=== PATIENT | male | born 1955 | race Caucasian/White ===

== ENCOUNTER 2017-12-21 16:33 | Emergency (ER) | payer OTHER, SELFPAY ==
[2017-12-21 16:34] VITALS: BP 157/89; PULSE 72; RESP 18; TEMP 36.6; O2SAT 100; BMI 24.4
--- NOTE | 2017-12-21 16:44 | CT_ITS ---
STUDY: CT ABDOMEN AND PELVIS WITHOUT CONTRAST REASON FOR EXAM: Male, 62 years old. Kidney stone, left-sided flank pain RADIATION DOSAGE (If Supplied By Facility): CTDIvol = ( 8.16 ) mGy, DLP = ( 429.95 ) mGycm TECHNIQUE: Transaxial images were obtained from the dome of the diaphragm to the symphysis pubis without oral contrast, and without intravenous contrast. Sagittal and coronal images were reconstructed. Individualized dose optimization techniques were used for this CT. COMPARISON: None. FINDINGS: There is a 7 mm nodule of the medial right lower lobe image 13 series 2. Coronary arterial calcifications are present. There is no pericardial effusion. Normal liver. Normal gallbladder and extrahepatic biliary system. Normal spleen. Normal pancreas. Normal bilateral adrenal glands. Normal right kidney. There are several nonobstructing left renal calculi measuring up to 3 mm. There is a mild left hydronephrosis. There is an obstructing 4 mm calculus in the mid left ureter. There is mild left perinephric stranding. Normal visualized stomach. Normal small intestine. Normal colon. The appendix is visualized and appears normal. There are calcified plaques of the abdominal aorta. Normal inferior vena cava. Normal retroperitoneum. Normal urinary bladder. The prostate is enlarged and contains several calcifications. There is a moderate-sized fat-containing left inguinal hernia. There are diffuse degenerative changes of the visualized thoracolumbar spine. CT/Abdomen/Pelvis without Cont IMPRESSION: 1. Obstructing 4 mm calculus in the mid left ureter with mild proximal left hydronephrosis and hydroureter. 2. There are several additional nonobstructing left renal calculi measuring up to 3 mm. 3. 7 mm nodule of the medial right lower lobe. Appropriate follow-up using Fleischner Society criteria is recommended. 4. Enlarged prostate. 5. Moderate-sized fat-containing left inguinal hernia. Electronically Signed: Liban Carrillo MD at 17:45 EST , Service support ,
--- NOTE | 2017-12-21 16:46 | ED.DCSUM_ITS ---
- ER Visit Summary Date of Service: 12/21/17 Chief Complaint: Left flank pain History of Present Illness: The patient is a 62 M who presents to the emergency department with atraumatic left-sided flank pain. The patient's of his symptoms for 8 days. He states initially when it started, he had a sharp stabbing pain in his left flank. It lasted about 7 hours and then resolved. Over the past week it comes in waves. It was more frequent last night. He does describe some nausea without vomiting. He denies any change in bowel habits. He does admit to some urinary frequency but denies hematuria or urgency. He states he has never had symptoms like this before. He has had no prior abdominal surgery. He does have history of diabetes, hypertension, and hyperlipidemia. Physical Examination: Vital signs reviewed General: Well-nourished, well-developed Head: Normocephalic, atraumatic Eyes: Pupils equal and reactive, extraocular muscles intact Neck, supple, no lymphadenopathy Heart: Regular rate and rhythm Respiratory: No distress, clear bilaterally Abdomen: Soft, nontender, nondistended, no peritoneal signs Back: Nontender Extremities: Nontender, no edema, no cords Skin: Normal color no rash Neuro: Alert and oriented, no focal or lateralizing deficits Test Results: [] Emergency Department Course and Treatment: The patient declined any analgesics. His labs are relatively unremarkable. He does have some mild renal insufficiency. Urine shows no evidence of infection. Patient underwent CT. There is evidence of a 4 mm mid ureteral obstructing stone with mild hydro-. Patient also has a small lung nodule. Again, he has been resting comfortably and has not wanted any analgesics while here. I did children's counselor him on the lung nodule and that he will need follow-up. I do feel that this patient is safe for outpatient therapy for his kidney stone. He will be given a short course of analgesics, Flomax, and antiemetics. He will be given urology follow-up. The patient is comfortable with this plan of care and will be discharged home. Treatment Plan: [] Disposition: Discharge Impression: 1. A 4 mm left sided obstructing kidney stone This note was generated with [employer] software. It may contain incorrect words, spelling, and punctuation that were not noted in review of the chart prior to signing ED Disposition - Plan for ED Patient: Chief Complaint: Flank Pain Instructions: ED Stone Renal W Colic Prescriptions: Hydrocodone Bitart/Apap 5-325 [[place] 5/325] 1 tab PO Q4H PRN PRN 3 Days #12 tab PRN Reason: Pain Ondansetron [Zofran Odt] 4 mg PO Q8H PRN PRN #10 tab PRN Reason: Nausea Tamsulosin HCl [Flomax] 0.4 mg PO DAILY 14 Days #14 cap Referrals: Alden Smith MD [STAFF PHYSICIAN] -
[2017-12-21] MEDS: 0.9% Normal Saline 1,000 ML 250 ML IV (16:56)
[2017-12-21 17:23] LABS: Bacteria 0 SEEN /hpf (None Seen)
[2017-12-21 17:24] LABS: Color, Urine Yellow (Yellow); Glucose, Dipstick 50 mg/dl (Normal); Ketone-Dipstick Negative (Negative); Leukocyte Esterase-Dipstick 25 /ul (Negative); Nitrite-Dipstick Negative (Negative); Occult Blood-Urine 250 /ul (Negative); Protein-Dipstick 30 mg/dl (Negative); Specific Gravity, Urine 1.015 (1.002-1.030); Urine Bilirubin Dipstick Negative (Negative); Urine Clarity Clear (Clear); Urine Urobilinogen Normal (Normal)
[2017-12-21 17:26] LABS: Absolute Lymphocyte Count 0.98 X10^3/ul (0.83-4.51); Absolute Neutrophil Count 7.6 X10^3/uL (2.0-7.7); Basophil# 0.01 X10^3/uL; Basophil% 0.1 % (0-1); Hematocrit 40.3 % (40-54); Hemoglobin 12.6 g/dl (13.0-16.5); Lymphocyte # 0.98 X10^3/ul (4.0); Lymphocyte % 9.7 % (19-41); Mean Corp Hgb Conc 31.3 g/gl (32-36); Mean Corpuscular Hgb 24.3 pg (27.0-32.0); Mean Corpuscular Volume 77.8 fL (80-94); Mean Platelet Vol. 9.9 fl (6.2-12.0); Monocyte# 1.45 X10^3/uL; Monocyte% 14.3 % (0-10); Neutrophil # 7.56 X10^3/uL (2.7-7.7); Neutrophil % 74.8 % (47-70); POSITIVE COUNT NO; POSITIVE DIFFERENTIAL NO; POSITIVE MORPHOLOGY NO; Platelet Count 272 K/mm3 (150-450); RBC Distribution Width CV 15.5 % (11.6-14.6); RBC Distribution Width SD 43.3 fl (35.1-43.9); Red Blood Count 5.18 M/mm3 (4.6-6.2); White Blood Count 10.1 K/mm3 (4.4-11.0)
[2017-12-21 17:31] LABS: Mucous, Urine 1+ /hpf (<or=2+); Red Blood Cells-Urine 5-10 SEEN /hpf (0-5); Squamous Epithelial Cells - UA 0-5 SEEN /hpf (0-5); White Blood Cells 0-5 SEEN /hpf (0-5)
[2017-12-21 17:39] LABS: Anion Gap 7 (5-15); BUN 26 mg/dL (7-18); BUN/Creat Ratio 17.9 RATIO (10-20); Calcium,Total 8.8 mg/dL (8.5-10.1); Chloride 104 mmol/L (98-107); Creatinine, Serum 1.45 mg/dL (0.70-1.30); EST Glomerular Filtration Rate 52 mL/min (>60); Est Glom Filt Rate - Afr Amer 63 mL/min (>60); Estimated Creatinine Clearance 56.49 ml/min; Glucose 93 mg/dL (74-106); Potassium 3.9 mmol/L (3.5-5.1); Sodium Level 139 mmol/L (136-145)
[2017-12-21 18:07] VITALS: BP 146/88; PULSE 69; RESP 16; O2SAT 100
== END 2017-12-21 18:08 | disposition home or self-care (01) ==
LOC: ED 16:58
PROVIDERS: Emergency Provider Emergency Medicine; Family Provider Family Medicine; PCP Family Medicine
DX: N13.2 Hydronephrosis with renal and ureteral calculous obstruction (principal); E78.5 Hyperlipidemia, unspecified; I10 Essential (primary) hypertension; E11.9 Type 2 diabetes mellitus without complications; R91.1 Solitary pulmonary nodule; Z79.84 Long term (current) use of oral hypoglycemic drugs; Z79.899 Other long term (current) drug therapy
CPT/HCPCS: 74176; 80048; 81001; 85025; 96360; 99283; J7030

== ENCOUNTER → 2018-01-10 07:21 | Outpatient (CLI) | payer OTHER, SELFPAY ==
--- NOTE | 2018-01-10 07:25 | RAD_ITS ---
STUDY: X-RAY - ABDOMEN/PELVIS REASON FOR EXAM: Male, 62 years old. History of left-sided kidney stones. TECHNIQUE: Two AP supine views of the abdomen and pelvis. COMPARISON: Comparison is made with prior CT scan abdomen and pelvis dated December 21, 2017. FINDINGS: There is a moderate amount of colonic fecal material. The visualized liver, spleen and kidneys are grossly normal in size and morphology. There are calcified phleboliths in the pelvis. There are diffuse degenerative changes of the visualized lumbar spine. RAD/Abdomen Single View IMPRESSION: No acute abnormality is seen. Electronically Signed: Shawn Pizano MD at 8:22 EDT Tel [phone], Service support ,
== END ==
PROVIDERS: Family Provider Family Medicine; PCP Family Medicine; Visit Provider Urology
DX: N20.0 Calculus of kidney (principal)
CPT/HCPCS: 74018

== ENCOUNTER → 2018-04-06 16:00 | Outpatient (CLI) | payer OTHER, SELFPAY ==
--- OUTSIDE RECORDS SUMMARY | 2018-05-13 12:11 | XMS RPT_ITS ---
:1955 Author Organization OHIP Care Team Providers Name Role Phone Melita Mcconnell Attending Unavailable Mcconnell, Melita Primary Care Unavailable Mcconnell, Melita Primary Care Unavailable Lance Scott Attending Unavailable SarahAlden Attending Unavailable Alden Smith Referring Unavailable Melita Mcconnell Primary Care Unavailable Igor Fields Attending Unavailable Melita Mcconnell Referring Unavailable Melita Mcconnell Primary Care Unavailable PROBLEMS PROBLEMS DATE TYPE CONDITION / CODE ATTENDING STATUS SOURCE 04/06/2018 Unknown J02.9 - Acute Igor Fields Active [facility] pharyngitis, Community unspecified / Hospital J02.9(ICD-10) Repository 01/10/2018 Unknown N20.0 - CalcAlden Drew Active [place] [facility] / [facility] N20.0(ICD-10) Hospital Repository 12/21/2017 Unknown N20.9 - Urinary Lance Scott Active [place] calculus, Community unspecified / Hospital N20.9(ICD-10) Repository PROCEDURES PROCEDURES No Procedure Records FoundRESULTS RESULTS OFFICE VISIT REPORT Observed: 04/06/2018 Status: F Source: [place] 2:53 PM [facility] [place] [address] [place] [place] [address]IVBZLE VISITDate of Service: 04/06/18#: [id number] Acct: [id number]: MELITA GEORGES Rep #: [id number]: 1955 Provider: CHERIE Jones/Sex: 62/M [place] [facility] [place]: SignedIntakeVital Signs04/06/18 Height 6 ft 1.5 inIntakeVisit Reasons: SORE THROATAllergiesNo Known Allergies Allergy (Verified 04/06/18 09:47)MedicationsAtorvastatin Calcium [Lipitor] 10 mg PO QHS 12/21/17 [History Confirmed 04/06/18]Glimepiride [Amaryl] 4 mg PO DAILY 12/21/17 [History Confirmed 04/06/18]Lisinopril 20 mg PO DAILY 12/21/17 [History Confirmed 04/06/18] Metformin HCl [Glucophage] 500 mg PO BIDCM 12/21/17 [History Confirmed 04/06/18]aspirin 81 mg tablet,delayed release 81 mg PO QDAY 04/06/18 [History Confirmed 04/06/18]omega -3 fatty acids 1,000 mg capsule 1,000 mg PO QDAY 04/06/18 [History Confirmed 04/06/18]PFSHMedical HistoryDiabetes (Acute)Hypertension (Chronic)Surgical HistoryHx of hernia repair (Acute)Social HistorySmoking Status: Never smokerHPIHPIDetails: MELITA GEORGES, is a 62 M who presents to the office today for evaluation of a sorethroat. Patient states that he started with a scratchy throat on and the painsprogressed yesterday evening. Patient states that he has a large amount of drainage/postnasaldrip. He states that he has minor cough as well as some seasonal allergies this time of year.At the beginning of the week he was outdoors at a confucianism retreat more than he is used to.ROSConstConstitutional: Positive for chills;no fever(s) or night sweatsENTENT: Positive for sore throat and nasal discharge; no ear pain, ear pressure or sinus painRespRespiratory: Positive for cough Cough: Yes non-productiveExamConstGeneral: cooperative, healthy appearing, comfortable, no acute distress, well developed, wellgroomedNutritional Appearance: average body habitusOrientation: alert, awakeHENMTEars: external ears normal, TM's normal bilaterally, EAC's normalNose: external nose normal, nasal discharge clear bilaterallyFace and sinus: sinuses nontender, normal facial examMouth: oral mucosae normal, breath no malodorousThroat: postnasal drainageOther: Patient has a lot of evident stringy, thick, off white/yellowish discharge noted in theposterior oropharynx. He has some minor erythema of the posterior oropharynx as well. Noexudates or other acute findings in the palatoglossal arch or soft palate.NeckLymphatic: no lymphadenopathy notedRespEffort AND Inspection: normal respiratory effort, able to speak in complete sentences, symmetricchest movement, no cough (No cough in office), no audible wheezes, not laboredAuscultation: Bilateral: Clear to AuscultationResultsBMSRAPIDSTREPAOffice Rapid Strep A Negative Last Edit by Saranya Nunn on 04/06/18 09:52Assessment AND PlanProblems1. Throat pain R07.02. Acute upper respiratory infection J06.9PlanAt this time patient sore throat appears to be due to the evident discharge in the posteriororopharynx. His strep was negative and office. At this time we will go ahead and continuewith conservative measures that include anti-inflammatories, saline irrigation and fluids, andpossibly intranasal corticosteroids such as Flonase. Discussed signs or symptoms to watch forsuch as sinus pains or pressures chest congestion with tightness wheezing or shortness ofbreath. Patient to return to the office if symptoms develop. All questions were answered atthis time.This note was generated with ViFlux dictation software. It may contain incorrect words,spelling, and punctuation that were not noted in checking the note before signing.OrdersOrders:MedicationsDiscontinued:hydrocodone-acetaminophen 5-325 mg 1 tab PO Q4H PRN 3 days PRN Pain N20.9 Saranyalizbeth DevlinkDiscontinued Reason: Pt no longertakingondansetron Discontinued Reason: 4 mg PO Q8H PRN PRN Nausea Saranya BunyakPt no longer takingCodingLevel of Care CodeOff vis,new,level 3DiagnosesThroat pain R07.0Acute upper respiratory infection J06.906/ 1453 <Electronically signed by gIor CRESPO>Date Igor Fields PACosigner Signature: Date (if applicable)CC: Observed: 04/06/2018 Status: F Source: [place] CULTURE, R/O STREP A 9:45 AM [facility] JO CultureNo Group A Beta Streptococcus isolated. * This cultures intended use is to screen for Beta Streptococcus A only. All other pathogens and potential pathogens will not be screened for or reported. If a complete workup of all potential pathogens is indicated an order for a routine throat culture is required. Performed By: #### M100.010 ####[facility] [address] [place], [address] ABDOMEN SINGLE VIEW Observed: 01/10/2018 Status: F Source: [place] 7:25 AM [facility] [address] [place], [place] [address]Kvbvozt Single ViewMR#: [id number] Acct: [id number]: MELITA GEORGES Rep #: [id number]: 1955 M 62 From: Shawn Pizano MDPCP: Melita Mcconnell MD Status: REG CLIStudy: Abdomen Single View Date of Exam: 01/10/18Exam# [id number] Ordering Dr: Alden Smith MDSTUDY: X-RAY - ABDOMEN/PELVISREASON FOR EXAM: Male, 62 years old. History of left- sided kidneystones.TECHNIQUE: Two AP supine views of the abdomen and pelvis.COMPARISON: Comparison is made with prior CT scan abdomen and pelvisdated December 21, 2017. FINDINGS:There is a moderate amount of colonic fecal material.The visualized liver, spleen and kidneys are grossly normal in size andmorphology.There are calcified phleboliths in the pelvis. There are diffusedegenerative changes of the visualized lumbar spine. ORDER #: [id number] RAD/Abdomen Single ViewIMPRESSION:No acute abnormality is seen.Electronically Signed:Shawn Pizano MD at 8:22 EDTTel [phone], Service support , SL: Melita Mcconnell MD; Alden Smith MD Finance Intern:Signed EMERGENCY DEPARTMENT Observed: 12/21/2017 Status: F Source: [place] SUMMARY 6:54 PM [facility] [address] [facility] [place] [address]Faiuafvag Department Vrqyeok86/02/18 1645MR#: [id number] Acct: [id number]: MELITA GEORGES Rep #: [id number]: 1955 62 From: Lance Scott MDPCP: Melita Mcconnell MD Status: DEP ER- ER Visit SummaryDate of Service: 12/21/17Chief Complaint: Left flank painHistory of Present Illness: The patient is a 62 M who presents to the emergency department withatraumatic left-sided flank pain. The patient's of his symptoms for 8 days. He statesinitially when it started, he had a sharp stabbing pain in his left flank. It lasted about 7hours and then resolved. Over the past week it comes in waves. It was more frequent lastnight. He does describe some nausea without vomiting. He denies any change in bowel habits.He does admit to some urinary frequency but denies hematuria or urgency. He states he hasnever had symptoms like this before. He has had no prior abdominal surgery. He does havehistory of diabetes, hypertension, and hyperlipidemia.Physical Examination: Vital signs reviewedGeneral: Well-nourished, well-developedHead: Normocephalic, atraumaticEyes: Pupils equal and reactive, extraocular muscles intactNeck, supple, no lymphadenopathyHeart: Regular rate and rhythmRespiratory: No distress, clear bilaterallyAbdomen: Soft, nontender, nondistended, no peritoneal signsBack: NontenderExtremities: Nontender, no edema, no cordsSkin: Normal color no rashNeuro: Alert and oriented, no focal or lateralizing deficitsTest Results: []Emergency Department Course and Treatment: The patient declined any analgesics. His labs arerelatively unremarkable. He does have some mild renal insufficiency. Urine shows no evidenceof infection. Patient underwent CT. There is evidence of a 4 mm mid ureteral obstructingstone with mild hydro-. Patient also has a small lung nodule. Again, he has been restingcomfortably and has not wanted any analgesics while here. I did pet adoption counselor him on the lung noduleand that he will need follow-up. I do feel that this patient is safe for outpatient therapyfor his kidney stone. He will be given a short course of analgesics, Flomax, and antiemetics.He will be given urology follow-up. The patient is comfortable with this plan of care and willbe discharged home.Treatment Plan: []Disposition: DischargeImpression: 1. A 4 mm left sided obstructing kidney stoneThis note was generated with ViFlux dictation software. It may contain incorrect words,spelling, and punctuation that were not noted in review of the chart prior to signingED Disposition- Plan for ED Patient:Chief Complaint: Flank PainInstructions: ED Stone Renal W ColicPrescriptions:Hydrocodone Bitart /Apap 5-325 [[place] 5/325] 1 tab PO Q4H PRN PRN 3 Days #12 tabPRN Reason: PainOndansetron [Zofran Odt] 4 mg PO Q8H PRN PRN #10 tabPRN Reason: NauseaTamsulosin HCl [ Flomax] 0.4 mg PO DAILY 14 Days #14 capReferrals:Alden Smith MD [STAFF PHYSICIAN] - What to do if you have ProblemsFor any increased pain, shortness of breath, bleeding , nausea or vomiting, chest pain, or anyunexpected problems, contact your Primary Care Provider. Call [facility] ([phone])or report to the closest Emergency Room.Call 911 if necessary.12/21/17 6772 <Electronically signed by Lance Scott MD>Date Lance Scott MDCosigner Signature (If Indicated): Date CC: Melita Mcconnell MD URINALYSIS, COMPLETE Collected: 12/21/2017 Status: F Source: [place] 5:00 PM [facility] Order Comment: Order Date: 12/21/17How was Urine Obtained? CLEAN CATCH TYPE CODE TESTS RESULT OUT OF RANGE REFERENCE UNITS LAB L400.3000 Normal Yellow COLOR Yellow LAB L400.3050 Normal Clear CLARITY Clear LAB L400.3200 High Normal mg/dl GLUCOSE, UR 50 LAB L400.3300 Normal Negative mg/dL BILIRUBIN Negative URINE LAB L400.3400 Normal Negative mg/dl KETONE UR Negative LAB L400.3465 Normal 1.002-1.030 SP.GR. 1.015 DIPSTX LAB L400.3550 Normal 5.0 - 8.0 pH UR 6.0 LAB L400.3600 High Negative mg/dl PROT DIPSTX 30 LAB L400.3700 Normal Normal mg/dl UROBILI Normal LAB L400.3750 Normal Negative NITRITE UR Negative LAB L400.3780 High Negative /ul OCCULT 250 BLOOD-UR LAB L400.3800 High Negative /ul LEUK 25 ESTERASE LAB L400.4050 Normal 0-5 /hpf WBC 0-5 SEEN LAB L400.4100 Normal 0-5 /hpf RBC-UA 5-10 SEEN LAB L400.4150 Normal 0-5 /hpf SQUAM EPI 0-5 SEEN LAB L400.4300 Normal None Seen /hpf BACTERIA 0 SEEN LAB L400.4350 Normal <or=2+ /hpf MUCUS, 1+ URINE Performed By: #### L400.0001 ####[facility] [address] [place], [address] CBC W/DIFF, AUTOMATED Collected: 12/21/2017 Status: F Source: ABHIJIT 5:00 PM [facility] TYPE CODE TESTS RESULT OUT OF RANGE REFERENCE UNITS LAB L100.1000 Normal 4.4-11.0 K/mm3 WBC 10.1 LAB L100.1200 Normal 4.6-6.2 M/mm3 RBC 5.18 LAB L100.1300 Low 13.0-16.5 g/dl HGB 12.6 LAB L100.1400 Normal 40-54 % HCT 40.3 LAB L100.1500 Low 80-94 fL MCV 77.8 LAB L100.1600 Low 27.0-32.0 pg MCH 24.3 LAB L100.1700 Low 32-36 g/gl MCHC 31.3 LAB L100.1810 High 11.6-14.6 % RDW 15.5 CV LAB L100.1820 Normal 35.1-43.9 fl RDW 43.3 SD LAB L100.1900 Normal 150-450 K/mm3 PLT 272 LAB L100.2000 Normal 6.2-12.0 fl MPV 9.9 LAB L100.2100 High 47-70 % NEUT% 74.8 LAB L100.2200 Low 19-41 % LY% 9.7 LAB L100.2300 High 0-10 % MONO% 14.3 LAB L100.2400 Normal 0-5 % EO% 1.0 LAB L100.2500 Normal 0-1 % BASO% 0.1 LAB L100.2550 Normal 0.0-0.9 % IM 0.100 GRAN % Result Comment: IG% - Immature Granulocytes (promyelocytes, myelocytes andmetamyelocytes) > 1% indicates that a LEFT SHIFT is Present. LAB L100.2620 Normal 2.0-7.7 X10 3/uL Absolute Neut 7.6 LAB L100.2720 Normal 0.83-4.51 X10 3/ul Absolute Lymph 0.98 Performed By: #### L100.0100 ####[facility] [address] [place], [address] BASIC METABOLIC Collected: 12/21/2017 Status: F Source: ABHIJ[place] PROFILE (BMP) 5:00 [facility] TYPE CODE TESTS RESULT OUT OF RANGE REFERENCE UNITS LAB L501.0100 Normal 74-106 mg/dL GLU 93 Result Comment: Please note revised GLUCOSE reference range pmhuohump46/02/2018. LAB L501.1000 High 7-18 mg/dL BUN 26 LAB L501.1100 High 0.70-1.30 mg/dL CREAT,SERUM 1.45 Result Comment: The validity of the calculated GFR AND GFRAA in patients over70 years has not been determined. Clinical correlation isessential. LAB L501.1110 Low >60 mL/min EST GFR 52 Result Comment: Non- GFR Calc LAB L501.1115 Normal >60 mL/min EST GFR - 63 AA Result Comment: GFR Calc LAB L501.1255 Normal ml/min Estimated 56.49 CRCL LAB L501.1300 Normal 10-20 RATIO BUN/CRE 17.9 LAB L501.2200 Normal 8.5-10 mg/dL CA 8.8 .1 LAB L501.5300 Normal 136-14 mmol/L NA 139 5 LAB L501.5600 Normal 3.5-5. mmol/L K 3.9 1 LAB L501.5900 Normal 98-107 mmol/L CL 104 LAB L501.6100 Normal 21.0-3 mmol/L CO2 28.0 2.0 LAB L501.6200 Normal 5-15 GAP 7 Performed By: #### L500.2500 ####[facility] [address] [place], [address] ABDOMEN/PELVIS WITHOUT Observed: 12/21/2017 Status: F Source: [place] CONT 4:44 PM [facility] [address] [place], [place] [address]Mrowcmh/Pelvis without ContMR#: [id number] Acct: [id number]: EMLITA GEORGES Rep #: [id number]: [birth year] M 62 From: Liban Carrillo MDPCP: Melita Mcconnell MD Status: REG ERStudy: Abdomen/Pelvis without Cont Date of Exam: 12/21/17Exam# [id number] Ordering Dr: Lance Scott MDSTUDY: CT ABDOMEN AND PELVIS WITHOUT CONTRASTREASON FOR EXAM: Male , 62 years old. Kidney stone, left-sided flank painRADIATION DOSAGE (If Supplied By Facility): CTDIvol = ( 8.16 ) mGy, DLP =( 429.95 ) mGycmTECHNIQUE: Transaxial images were obtained from the dome of the diaphragmto the symphysis pubis without oral contrast, and without intravenouscontrast. Sagittal and coronal images were reconstructed.Individualized dose optimization techniques were used for this CT.COMPARISON: None. FINDINGS:There is a 7 mm nodule of the medial right lower lobe image 13 series 2.Coronary arterial calcifications are present. There is no pericardialeffusion.Normal liver. Normal gallbladder and extrahepatic biliary system. Normalspleen. Normal pancreas.Normal bilateral adrenal glands.Normal right kidney. There are several nonobstructing left renal calculimeasuring up to 3 mm. There is a mild left hydronephrosis. There is anobstructing 4 mm calculus in the mid left ureter. There is mild leftperinephric stranding.Normal visualized stomach. Normal small intestine. Normal colon. Theappendix is visualized and appears normal.There are calcified plaques of the abdominal aorta. Normal inferior venacava. Normal retroperitoneum.Normal urinary bladder. The prostate is enlarged and contains severalcalcifications.There is a moderate-sized fat-containing left inguinal hernia. There arediffuse degenerative changes of the visualized thoracolumbar spine. ORDER #: [id number] CT/Abdomen/Pelvis without ContIMPRESSION:1. Obstructing 4 mm calculus in the mid left ureter with mild proximalleft hydronephrosis and hydroureter.2. There are several additional nonobstructing left renal calculimeasuring up to 3 mm.3. 7 mm nodule of the medial right lower lobe. Appropriate follow-upusing Fleischner Society criteria is recommended.4. Enlarged prostate.5. Moderate-sized fat-containing left inguinal hernia.Electronically Signed:Liban Carrillo MD at 17:45 ESTTel , Service support , PD: Melita Mcconnell MD; Lance Scott MD Finance Intern:Signed LIPID PROFILE Collected: 10/12/2017 Status: F Source: [place] 8:05 [facility] REPOSITORY Order Comment: Order Date: 07/02/17Order Info: [id number] - LIPIDOrder Info: [id number] - GLU TYPE CODE TESTS RESULT OUT OF RANGE REFERENCE UNITS LAB L501.4900 Normal 200 mg/dL CHOL 139 Result Comment: <200 mg /dL Desirable 200-240 mg/dL Borderline >240 mg/dL High Risk LAB L501.5000 Normal mg/dL TRIG 162 Result Comment: The drugs N-Acetylcysteine and Metamizole may falselydepress this assay.Serum Triglycerides Reference Interval Normal <150 mg/dL Borderline high 150 - 199 mg/dL High 200 - 499 mg/dL Very High > or = 500 mg/dL LAB L501.6400 Low mg/dL HDL 39 Result Comment: The drugs N-Acetylcysteine and Metamizole may falselydepress this assay. Reference Range HDL <40 mg/dL Low HDL Cholesterol HDL >or= 60 mg/dL High HDL Cholesterol LAB L501.6500 Normal 0-130 mg/dL LDL 68 LAB L501.6600 Normal 5-40 mg/dL VLDL 32 Performed By: #### L500.4100, L501.0100, L501.9985 #### [facility] [address] [place], [address] GLUCOSE Collected: 10/12/2017 Status: F Source: [place] 8:05 [facility] REPOSITORY Order Comment: Order Date: 07/02/17Order Info: [id number] - LIPIDOrder Info: [id number] - GLU TYPE CODE TESTS RESULT OUT OF RANGE REFERENCE UNITS LAB L501.0100 High 70-110 mg/dL GLU 158 Result Comment: Fasting Glucose result greater than or equal to 126 mg/dLsuggests DIABETES MELLITUS per A.D.A. criteria. Performed By: #### L500.4100, L501.0100, L501.9985 #### [facility] [address] [place], [address] HEMOGLOBIN A1C Collected: 10/12/2017 Status: F Source: ABHIJIT 8:05 AM [facility] Order Comment: Order Date: 07/02/17Order Info: [id number] - A1C TYPE CODE TESTS RESULT OUT OF RANGE REFERENCE UNITS LAB L501.9985 High 4.2-6.3 % HGB 7.4 A1C Performed By: #### L500.4100, L501.0100, L501.9985 #### [facility] [address] [place], [address] ALLERGIES ALLERGIES DATE TYPE / CODE NAME / CODE REACTION SEVERITY SOURCE 04/06/2018 Drug No Known Unknown [facility] Allergy/4160 Allergies/F00 Hospital 87571(SNOMED [id number](RXNOR Repository CT) M) ENCOUNTERS ENCOUNTERS ADMIT/DISCHARGE ACCOUNT ADMITTING ENCOUNTER LOCATION SOURCE NUMBER CLASS 04/06/2018/ [id number] [facility] [place] [facility] 01/10/2018 [id number] Ambulatory [place] Abhijit 2 [facility] ing:RAD.FUTUR Repository E 12/21/2017/ [id number] Emergency Abhijit [place] 8 4 [facility] ing:ED Repository 10/12/2017 [id number] Ambulatory [facility] 8 [facility] ing:MFPLAB Repository PAYERS PAYERS ENCOUNTER GUARANTOR PAYER SUBSCRIBER SOURCE 04/06/2018 MELITA GEORGES[address] Insurance:AULTCAREPol SLATERDOB: [facility] RDAPPLE icy Number: [id number], [place] [id number] Repository [address]Yas: Date:9135-82-92E[phone]4 ) [address]WP: 04/06/2018 Secondary NOT GIVENUNK [place] Insurance:SELF PAY [facility] Number: Effective Repository Date:2018-04-06 01/10/2018 MELITA R Primary MELITA R [place] [id number] Insurance:AULTCAREPol SLATERDOB: [facility] [place] icy Number: [id number], [place] [id number] Repository [address]Uqo: Date:3160-57-34[phone] [place] [address] -4 (HP) [phone]: 01/10/2018 Secondary NOT GIVENUNK [place] Insurance:SELF PAY [facility] Number: Effective Repository Date:2018-01-09 12/21/2017 Melita R Primary Melita Lacey [id number] Insurance:AULTCAREPol SlaterDOB: [facility] [place] icy Number: [id number], [place] [id number] Repository [address]Dqh: Date:3516-60-56DD [phone] [address]4 (HP) [phone]: 12/21/2017 Secondary NOT GIVENUNK [place] Insurance:SELF PAY [facility] Number: Effective Repository Date:2017-12-21 10/12/2017 Melita R Primary Melita Lacey [id number] Insurance:AULTCAREPol SlaterDOB: [facility] [place] RD[place] icy Number: [id number], [place] [id number] Repository [address]Uio: (330) Date:9904-67-71QR [phone] () [address] [place] [phone]: 10/12/2017 Secondary NOT GIVENUNK [place] Insurance:SELF PAY [facility] Number: Effective Repository Date:2017-10-12
== END ==
PROVIDERS: Visit Provider Physician Assistant
DX: J02.9 Acute pharyngitis, unspecified (principal)
CPT/HCPCS: 87081

== ENCOUNTER → 2018-07-11 06:41 | Outpatient (CLI) | payer OTHER, SELFPAY ==
--- NOTE | 2018-07-11 06:43 | CT_ITS ---
STUDY: CT CHEST WITHOUT CONTRAST REASON FOR EXAM: Male, 62 years old. Right lung nodule seen on CT the abdomen and pelvis in December. Nonsmoker. RADIATION DOSAGE (If Supplied By Facility): CTDIvol = ( 13.04 ) mGy, DLP = ( 1010.48 ) mGycm TECHNIQUE: Transaxial imaging was performed without the administration of intravenous contrast material. Multiplanar coronal and sagittal images were reformatted. Individualized dose optimization techniques were used for this CT. COMPARISON: CT of the abdomen and pelvis, December 21, 2017 FINDINGS: The lungs are well expanded. There is a 3 mm nodule in the lateral aspect of the right lung base which was noted on the prior study. This is best seen on image 91 of series 7. The nodular density along the right heart border in the medial right lung base is again noted on image 93. This measures 4 mm diameter. No other nodules are seen. There is no infiltrate. There is no demonstrated pleural abnormality. Normal heart and pericardium. There are calcifications of the coronary arteries. There is nonspecific subcentimeter lymph nodes in the peritracheal space, subcarinal space and AP window. Normal hilar regions. Normal unenhanced pulmonary arteries. Normal aorta arch and descending thoracic aorta. There are multi-level degenerative changes of the thoracic spine. There is no demonstrated abnormality of the visualized upper abdomen. CT/Chest without Contrast IMPRESSION: There are 2 small nodules in the right lower lobe. No further workup is considered necessary by Fleischner. Society criteria. The study is otherwise unremarkable. Electronically Signed: Reagan Negrete DO at 23:05 EDT Tel [phone], Service support ,
== END ==
PROVIDERS: Family Provider Family Medicine; PCP Family Medicine; Visit Provider Family Medicine
DX: R91.1 Solitary pulmonary nodule (principal)
CPT/HCPCS: 71250

== ENCOUNTER → 2018-09-05 08:03 | Outpatient (CLI) | payer OTHER, SELFPAY ==
[2018-09-05 10:12] LABS: Hematocrit 39.9 % (40-54); Hemoglobin 12.3 g/dl (13.0-16.5); Mean Corp Hgb Conc 30.8 g/gl (32-36); Mean Corpuscular Hgb 24.2 pg (27.0-32.0); Mean Corpuscular Volume 78.5 fL (80-94); Mean Platelet Vol. 10.4 fl (6.2-12.0); Platelet Count 251 K/mm3 (150-450); RBC Distribution Width CV 15.8 % (11.6-14.6); Red Blood Count 5.08 M/mm3 (4.6-6.2); White Blood Count 5.6 K/mm3 (4.4-11.0)
[2018-09-05 10:15] LABS: Scan Indicated on CBC? Y/N NO
[2018-09-05 10:16] LABS: Anion Gap 9 (5-15); BUN 16 mg/dL (7-18); BUN/Creat Ratio 15.4 RATIO (10-20); Calcium,Total 8.6 mg/dL (8.5-10.1); Chloride 104 mmol/L (98-107); Cholesterol 136 mg/dL (200); Creatinine, Serum 1.04 mg/dL (0.70-1.30); EST Glomerular Filtration Rate 76 mL/min (>60); Est Glom Filt Rate - Afr Amer 92 mL/min (>60); Ferritin 8 ng/mL (26-388); Glucose 135 mg/dL (74-106); High Density Lipoprotein 40 mg/dL; PSA,Total - Annual Screen 2.15 ng/mL (0.00-4.00); Potassium 4.4 mmol/L (3.5-5.1); Sodium Level 139 mmol/L (136-145); Triglycerides 163 mg/dL; Very Low Density Lipoprotein 33 mg/dL (5-40)
[2018-09-05 10:18] LABS: Hemoglobin A1c 7.7 % (4.2-6.3)
== END ==
PROVIDERS: Family Provider Family Medicine; PCP Family Medicine; Visit Provider Family Medicine
DX: I10 Essential (primary) hypertension (principal); E11.9 Type 2 diabetes mellitus without complications; E78.5 Hyperlipidemia, unspecified; Z12.5 Encounter for screening for malignant neoplasm of prostate
CPT/HCPCS: 36415; 80048; 80061; 82728; 83036; 84153; 85027; G0103

== ENCOUNTER → 2019-03-12 16:00 | Outpatient (CLI) | payer OTHER, SELFPAY ==
[2018-04-06 09:44] VITALS: BMI 23.8
[2019-03-12 17:39] LABS: Absolute Lymphocyte Count 1.11 X10^3/ul (0.83-4.51); Absolute Neutrophil Count 4.5 X10^3/uL (2.0-7.7); Basophil# 0.02 X10^3/uL; Basophil% 0.3 % (0-1); Eosinophil# 0.14 X10^3/uL; Eosinophils% 2.2 % (0-5); Hematocrit 41.4 % (40-54); Hemoglobin 13.7 g/dl (13.0-16.5); Lymphocyte # 1.11 X10^3/ul (4.0); Lymphocyte % 17.5 % (19-41); Mean Corp Hgb Conc 33.1 g/gl (32-36); Mean Corpuscular Hgb 28.1 pg (27.0-32.0); Mean Platelet Vol. 9.9 fl (6.2-12.0); Monocyte# 0.62 X10^3/uL; Monocyte% 9.8 % (0-10); Neutrophil # 4.46 X10^3/uL (2.7-7.7); Neutrophil % 70.2 % (47-70); Platelet Count 244 K/mm3 (150-450); RBC Distribution Width CV 13.8 % (11.6-14.6); RBC Distribution Width SD 42.8 fl (35.1-43.9); Red Blood Count 4.87 M/mm3 (4.6-6.2); White Blood Count 6.4 K/mm3 (4.4-11.0)
[2019-03-12 17:44] LABS: POSITIVE COUNT NO; POSITIVE DIFFERENTIAL NO; POSITIVE MORPHOLOGY NO
[2019-03-12 18:09] LABS: Ferritin 23 ng/mL (26-388)
== END ==
PROVIDERS: Family Provider Family Medicine; PCP Family Medicine; Visit Provider Family Medicine
DX: D50.9 Iron deficiency anemia, unspecified (principal)
CPT/HCPCS: 36415; 82728; 85025

== ENCOUNTER → 2019-09-17 08:19 | Outpatient (CLI) | payer MEDICARE, OTHER, SELFPAY ==
[2019-09-17 10:33] LABS: Absolute Neutrophil Count 3.8 X10^3/uL (2.0-7.7); Basophil# 0.01 X10^3/uL; Basophil% 0.2 % (0-1); Eosinophil# 0.12 X10^3/uL; Eosinophils% 2.2 % (0-5); Hematocrit 39.7 % (40-54); Hemoglobin 12.4 g/dL (13.0-16.5); Lymphocyte % 18.5 % (19-41); Mean Corp Hgb Conc 31.2 g/dL (32-36); Mean Corpuscular Hgb 25.5 pg (27.0-32.0); Mean Corpuscular Volume 81.5 fL (80-94); Mean Platelet Vol. 10.1 fl (6.2-12.0); Monocyte% 9.3 % (0-10); NRBC Flagged by Analyzer 0 % (0-5); Neutrophil # 3.75 X10^3/uL (2.7-7.7); Neutrophil % 69.4 % (47-70); Platelet Count 287 K/mm3 (150-450); RBC Distribution Width CV 13.1 % (11.6-14.6); RBC Distribution Width SD 38.7 fl (35.1-43.9); Red Blood Count 4.87 M/mm3 (4.6-6.2); White Blood Count 5.4 K/mm3 (4.4-11.0)
[2019-09-17 10:47] LABS: Anion Gap 9 (5-15); BUN 25 mg/dL (7-18); BUN/Creat Ratio 23.4 RATIO (10-20); Calcium,Total 8.8 mg/dL (8.5-10.1); Chloride 106 mmol/L (98-107); Cholesterol 153 mg/dL (200); Creatinine, Serum 1.07 mg/dL (0.70-1.30); EST Glomerular Filtration Rate 74 mL/min (>60); Est Glom Filt Rate - Afr Amer 89 mL/min (>60); Ferritin 7 ng/mL (26-388); Glucose 162 mg/dL (74-106); High Density Lipoprotein 39 mg/dL; PSA,Total - Annual Screen 2.86 ng/mL (0.00-4.00); Potassium 4.2 mmol/L (3.5-5.1); Sodium Level 139 mmol/L (136-145); Triglycerides 185 mg/dL; Very Low Density Lipoprotein 37 mg/dL (5-40)
[2019-09-17 10:58] LABS: Hemoglobin A1c 8.2 % (4.2-6.3)
== END ==
PROVIDERS: Family Provider Family Medicine; PCP Family Medicine; Referring Provider Family Medicine; Visit Provider Family Medicine
DX: I10 Essential (primary) hypertension (principal); D50.9 Iron deficiency anemia, unspecified; E11.9 Type 2 diabetes mellitus without complications; Z12.5 Encounter for screening for malignant neoplasm of prostate
CPT/HCPCS: 36415; 80048; 80061; 82728; 83036; 84153; 85025; G0103

== ENCOUNTER → 2020-04-12 08:02 | Outpatient (CLI) | payer MEDICARE, OTHER, SELFPAY ==
[2020-04-12 09:47] LABS: Absolute Lymphocyte Count 0.89 X10^3/uL (0.83-4.51); Absolute Neutrophil Count 3.5 X10^3/uL (2.0-7.7); Basophil# 0.03 X10^3/uL; Basophil% 0.6 % (0-1); Eosinophil# 0.12 X10^3/uL; Eosinophils% 2.3 % (0-5); Hematocrit 36.1 % (40-54); Hemoglobin 11.2 g/dL (13.0-16.5); Lymphocyte # 0.89 X10^3/ul (4.0); Lymphocyte % 17.2 % (19-41); Mean Corpuscular Hgb 25.9 pg (27.0-32.0); Mean Corpuscular Volume 83.6 fL (80-94); Mean Platelet Vol. 10.3 fl (6.2-12.0); Monocyte# 0.56 X10^3/uL; Monocyte% 10.8 % (0-10); NRBC Flagged by Analyzer 0 % (0-5); Neutrophil # 3.53 X10^3/uL (2.7-7.7); Neutrophil % 68.3 % (47-70); Platelet Count 273 K/mm3 (150-450); RBC Distribution Width CV 13.2 % (11.6-14.6); RBC Distribution Width SD 40.1 fl (35.1-43.9); Red Blood Count 4.32 M/mm3 (4.6-6.2); White Blood Count 5.2 K/mm3 (4.4-11.0)
[2020-04-12 10:12] LABS: Ferritin 5 ng/mL (26-388)
[2020-04-12 10:21] LABS: Hemoglobin A1c 7.1 % (3.8-5.6)
== END ==
PROVIDERS: PCP Family Medicine; Visit Provider Family Medicine
DX: D50.9 Iron deficiency anemia, unspecified (principal); E11.65 Type 2 diabetes mellitus with hyperglycemia
CPT/HCPCS: 36415; 82728; 83036; 85025

== ENCOUNTER → 2020-08-06 08:01 | Outpatient (CLI) | payer MEDICARE, OTHER, SELFPAY ==
[2020-08-06 10:01] LABS: Absolute Lymphocyte Count 0.98 X10^3/uL (0.83-4.51); Absolute Neutrophil Count 3.8 X10^3/uL (2.0-7.7); Basophil# 0.02 X10^3/uL; Basophil% 0.4 % (0-1); Eosinophil# 0.22 X10^3/uL; Eosinophils% 3.9 % (0-5); Hematocrit 44.3 % (40-54); Hemoglobin 13.8 g/dL (13.0-16.5); Lymphocyte # 0.98 X10^3/ul (4.0); Lymphocyte % 17.6 % (19-41); Mean Corp Hgb Conc 31.2 g/dL (32-36); Mean Corpuscular Hgb 26.3 pg (27.0-32.0); Mean Corpuscular Volume 84.4 fL (80-94); Mean Platelet Vol. 9.9 fl (6.2-12.0); Monocyte# 0.56 X10^3/uL; Monocyte% 10.1 % (0-10); NRBC Flagged by Analyzer 0 % (0-5); Neutrophil # 3.76 X10^3/uL (2.7-7.7); Neutrophil % 67.5 % (47-70); Platelet Count 246 K/mm3 (150-450); RBC Distribution Width CV 15.2 % (11.6-14.6); RBC Distribution Width SD 46.1 fl (35.1-43.9); Red Blood Count 5.25 M/mm3 (4.6-6.2); White Blood Count 5.6 K/mm3 (4.4-11.0)
[2020-08-06 10:37] LABS: Anion Gap 4 (5-15); BUN 14 mg/dL (7-18); BUN/Creat Ratio 13.5 RATIO (10-20); Calcium,Total 8.7 mg/dL (8.5-10.1); Chloride 107 mmol/L (98-107); Creatinine, Serum 1.04 mg/dL (0.70-1.30); EST Glomerular Filtration Rate 76 mL/min (>60); Est Glom Filt Rate - Afr Amer 92 mL/min (>60); Ferritin 12 ng/mL (26-388); Glucose 180 mg/dL (74-106); Potassium 4.3 mmol/L (3.5-5.1); Sodium Level 139 mmol/L (136-145)
[2020-08-06 10:41] LABS: Microalbumin,Random Urine 12.6 mg/L (NO RANGE EST.); Microalbumin:Creatinine Ratio 8.5 mg/g CRE (<30 mg/g CRE)
[2020-08-06 10:49] LABS: Hemoglobin A1c 6.9 % (3.8-5.6)
== END ==
PROVIDERS: PCP Family Medicine; Referring Provider Family Medicine; Visit Provider Family Medicine
DX: E11.65 Type 2 diabetes mellitus with hyperglycemia (principal); D50.9 Iron deficiency anemia, unspecified
CPT/HCPCS: 36415; 80048; 82043; 82570; 82728; 83036; 85025

== ENCOUNTER → 2020-10-14 | Outpatient (CLI) | payer MEDICARE, OTHER, SELFPAY ==
[2018-04-06 09:44] VITALS: BMI 23.8
== END | disposition home or self-care (01) ==
LOC: LABSPEC 10:41
PROVIDERS: PCP Family Medicine; Visit Provider Family Medicine
DX: U07.1 COVID-19 (principal)
CPT/HCPCS: 87635; U0003

== ENCOUNTER → 2021-02-08 08:01 | Outpatient (CLI) | payer MEDICARE, OTHER, SELFPAY ==
[2021-02-08 10:17] LABS: Absolute Lymphocyte Count 1.28 X10^3/uL (0.83-4.51); Absolute Neutrophil Count 4.4 X10^3/uL (2.0-7.7); Basophil# 0.03 X10^3/uL; Basophil% 0.5 % (0-1); Eosinophil# 0.25 X10^3/uL; Eosinophils% 3.8 % (0-5); Hematocrit 47.1 % (40-54); Hemoglobin 14.6 g/dL (13.0-16.5); Lymphocyte # 1.28 X10^3/ul (0.83-4.51); Lymphocyte % 19.3 % (19-41); Mean Corpuscular Hgb 26.9 pg (27.0-32.0); Mean Corpuscular Volume 86.7 fL (80-94); Mean Platelet Vol. 10.3 fl (6.2-12.0); Monocyte# 0.61 X10^3/uL; Monocyte% 9.2 % (0-10); NRBC Flagged by Analyzer 0 % (0-5); Neutrophil # 4.42 X10^3/uL (2.7-7.7); Neutrophil % 66.7 % (47-70); Platelet Count 300 K/mm3 (150-450); RBC Distribution Width CV 13.2 % (11.6-14.6); RBC Distribution Width SD 41.6 fl (35.1-43.9); Red Blood Count 5.43 M/mm3 (4.6-6.2); White Blood Count 6.6 K/mm3 (4.4-11.0)
[2021-02-08 10:54] LABS: ALB/GLOB Ratio 1.1 RATIO (0.9-2.4); AST(SGOT) 27 U/L (15-37); Alanine Aminotransfer ALT/SGPT 52 U/L (16-61); Albumin, Serum 3.9 g/dL (3.2-5.0); Alkaline Phosphatase 91 U/L (45-117); Anion Gap 6 (5-15); BUN 18 mg/dL (7-18); BUN/Creat Ratio 16.5 RATIO (10-20); Calcium,Total 8.9 mg/dL (8.5-10.1); Chloride 102 mmol/L (98-107); Cholesterol 145 mg/dL (200); Creatinine, Serum 1.09 mg/dL (0.70-1.30); EST Glomerular Filtration Rate 72 mL/min (>60); Est Glom Filt Rate - Afr Amer 87 mL/min (>60); Ferritin 19 ng/mL (26-388); Globulin 3.6 g/dL (2.2-4.2); Glucose 165 mg/dL (74-106); High Density Lipoprotein 40 mg/dL; Potassium 4.1 mmol/L (3.5-5.1); Protein, Total 7.5 g/dL (6.4-8.2); Sodium Level 138 mmol/L (136-145); Triglycerides 229 mg/dL; Very Low Density Lipoprotein 46 mg/dL (5-40)
[2021-02-08 11:22] LABS: Hemoglobin A1c 7.3 % (3.8-5.6)
[2021-02-08 11:41] LABS: Microalbumin,Random Urine 17.1 mg/L (NO RANGE EST.); Microalbumin:Creatinine Ratio 12.7 mg/g CRE (<30 mg/g CRE)
== END ==
PROVIDERS: PCP Family Medicine; Visit Provider Family Medicine
DX: D50.9 Iron deficiency anemia, unspecified (principal); I10 Essential (primary) hypertension; E11.65 Type 2 diabetes mellitus with hyperglycemia
CPT/HCPCS: 36415; 80053; 80061; 82043; 82570; 82728; 83036; 85025

== ENCOUNTER → 2021-08-10 08:02 | Outpatient (CLI) | payer MEDICARE, OTHER, SELFPAY ==
[2021-08-10 10:16] LABS: Absolute Lymphocyte Count 0.98 X10^3/uL (0.83-4.51); Absolute Neutrophil Count 3.9 X10^3/uL (2.0-7.7); Basophil# 0.02 X10^3/uL; Basophil% 0.4 % (0-1); Eosinophil# 0.18 X10^3/uL; Eosinophils% 3.2 % (0-5); Hematocrit 40.7 % (40-54); Hemoglobin 12.9 g/dL (13.0-16.5); Lymphocyte # 0.98 X10^3/ul (0.83-4.51); Lymphocyte % 17.5 % (19-41); Mean Corp Hgb Conc 31.7 g/dL (32-36); Mean Corpuscular Hgb 27.9 pg (27.0-32.0); Mean Corpuscular Volume 88.1 fL (80-94); Mean Platelet Vol. 10.1 fl (6.2-12.0); Monocyte# 0.55 X10^3/uL; Monocyte% 9.8 % (0-10); NRBC Flagged by Analyzer 0 % (0-5); Neutrophil # 3.85 X10^3/uL (2.7-7.7); Neutrophil % 68.7 % (47-70); Platelet Count 277 K/mm3 (150-450); RBC Distribution Width CV 13.1 % (11.6-14.6); RBC Distribution Width SD 41.9 fl (35.1-43.9); Red Blood Count 4.62 M/mm3 (4.6-6.2); White Blood Count 5.6 K/mm3 (4.4-11.0)
[2021-08-10 10:34] LABS: AST(SGOT) 25 U/L (15-37); Alanine Aminotransfer ALT/SGPT 47 U/L (16-61); Albumin, Serum 3.6 g/dL (3.2-5.0); Alkaline Phosphatase 76 U/L (45-117); Anion Gap 6 (5-15); BUN 18 mg/dL (7-18); BUN/Creat Ratio 18.1 RATIO (10-20); Calcium,Total 8.5 mg/dL (8.5-10.1); Chloride 105 mmol/L (98-107); Cholesterol 138 mg/dL (200); EST Glomerular Filtration Rate 79 mL/min (>60); Est Glom Filt Rate - Afr Amer 96 mL/min (>60); Ferritin 11 ng/mL (26-388); Globulin 3.5 g/dL (2.2-4.2); Glucose 179 mg/dL (74-106); High Density Lipoprotein 43 mg/dL; Protein, Total 7.1 g/dL (6.4-8.2); Sodium Level 139 mmol/L (136-145); Triglycerides 197 mg/dL; Very Low Density Lipoprotein 39 mg/dL (5-40)
== END ==
PROVIDERS: PCP Registered Nurse; Referring Provider Registered Nurse; Visit Provider Registered Nurse
DX: E11.65 Type 2 diabetes mellitus with hyperglycemia (principal); E78.5 Hyperlipidemia, unspecified; D50.9 Iron deficiency anemia, unspecified; Z12.5 Encounter for screening for malignant neoplasm of prostate
CPT/HCPCS: 36415; 80053; 80061; 82728; 83036; 84153; 85025; G0103

== ENCOUNTER → 2021-10-11 | Outpatient (CLI) | payer MEDICARE, OTHER, SELFPAY | END | disposition home or self-care (01) | LOC: LABSPEC 11:09 | PROVIDERS: PCP Registered Nurse; Referring Provider Physician Assistant Surgical; Visit Provider Physician Assistant Surgical | DX: Z11.52 Encounter for screening for COVID-19 (principal) | CPT/HCPCS: 87635; U0005; U0003 ==

== ENCOUNTER 2021-11-11 15:08 | Outpatient (CLI) | payer MEDICARE, OTHER, SELFPAY ==
[2021-11-11 15:48] LABS: Bacteria 0 SEEN /hpf (None Seen); Mucous, Urine 0 SEEN /hpf (<or=2+); Red Blood Cells-Urine 0 SEEN /hpf (0-5)
[2021-11-11 16:24] LABS: Color, Urine Yellow (Yellow); Glucose, Dipstick 1000 mg/dl (Normal); Ketone-Dipstick 15 mg/dl (Negative); Leukocyte Esterase-Dipstick 500 /ul (Negative); Nitrite-Dipstick Negative (Negative); Occult Blood-Urine 10 /ul (Negative); Protein-Dipstick 30 mg/dl (Negative); Specific Gravity, Urine 1.015 (1.002-1.030); Urine Bilirubin Dipstick Negative (Negative); Urine Clarity Clear (Clear); Urine Urobilinogen Normal (Normal)
[2021-11-11 16:33] LABS: White Blood Cells 50-100 SEEN /hpf (0-5)
[2021-11-11 16:34] LABS: Squamous Epithelial Cells - UA 0-5 SEEN /hpf (0-5)
[2021-11-11 16:37] LABS: Yeast-Urine RARE /hpf (None Seen)
== END 2021-11-11 23:59 | disposition short-term general hospital (02) ==
LOC: LABSPEC 15:12
PROVIDERS: PCP Registered Nurse; Visit Provider Physician Assistant Surgical
DX: N39.0 Urinary tract infection, site not specified (principal)
CPT/HCPCS: 81001; 87086; 87088

== ENCOUNTER 2022-02-06 09:30 | Outpatient (CLI) | payer MEDICARE, OTHER, SELFPAY | END 2022-02-06 23:59 | disposition home or self-care (01) | LOC: MFPLAB 09:31 | PROVIDERS: PCP Registered Nurse; Visit Provider Family Medicine | DX: Z00.00 Encounter for general adult medical examination without abnormal findings (principal) ==

== ENCOUNTER → 2022-02-15 | Outpatient (CLI) | payer MEDICARE, OTHER, SELFPAY ==
[2022-02-15 10:05] LABS: Absolute Lymphocyte Count 0.88 X10^3/uL (0.83-4.51); Absolute Neutrophil Count 3.5 X10^3/uL (2.0-7.7); Basophil# 0.02 X10^3/uL; Basophil% 0.4 % (0-1); Eosinophil# 0.14 X10^3/uL; Eosinophils% 2.8 % (0-5); Hematocrit 37.7 % (40-54); Hemoglobin 12.4 g/dL (13.0-16.5); Lymphocyte # 0.88 X10^3/ul (0.83-4.51); Lymphocyte % 17.5 % (19-41); Mean Corp Hgb Conc 32.9 g/dL (32-36); Mean Corpuscular Hgb 26.7 pg (27.0-32.0); Mean Corpuscular Volume 81.3 fL (80-94); Mean Platelet Vol. 9.6 fl (6.2-12.0); Monocyte# 0.44 X10^3/uL; Monocyte% 8.8 % (0-10); NRBC Flagged by Analyzer 0 % (0-5); Neutrophil # 3.52 X10^3/uL (2.7-7.7); Neutrophil % 70.1 % (47-70); Platelet Count 269 K/mm3 (150-450); RBC Distribution Width CV 13.1 % (11.6-14.6); RBC Distribution Width SD 38.3 fl (35.1-43.9); Red Blood Count 4.64 M/mm3 (4.6-6.2)
[2022-02-15 10:30] LABS: Hemoglobin A1c 7.4 % (3.8-5.6)
[2022-02-15 10:36] LABS: Microalbumin,Random Urine 48.5 mg/L (NO RANGE EST.); Microalbumin:Creatinine Ratio 56.3 mg/g CRE (<30 mg/g CRE)
[2022-02-15 10:44] LABS: ALB/GLOB Ratio 1.1 RATIO (0.9-2.4); AST(SGOT) 25 U/L (15-37); Alanine Aminotransfer ALT/SGPT 43 U/L (16-61); Albumin, Serum 3.7 g/dL (3.2-5.0); Alkaline Phosphatase 81 U/L (45-117); Anion Gap 8 (5-15); BUN 16 mg/dL (7-18); BUN/Creat Ratio 17.4 RATIO (10-20); CPK Total, Creatine Kinase 328 U/L (39-308); Calcium,Total 8.4 mg/dL (8.5-10.1); Chloride 102 mmol/L (98-107); Cholesterol 136 mg/dL (200); Creatinine, Serum 0.92 mg/dL (0.70-1.30); EST Glomerular Filtration Rate 87 mL/min (>60); Est Glom Filt Rate - Afr Amer 105 mL/min (>60); Ferritin 6 ng/mL (26-388); Globulin 3.5 g/dL (2.2-4.2); Glucose 168 mg/dL (74-106); High Density Lipoprotein 37 mg/dL; Iron 165 ug/dL (65-175); Iron Binding Capacity,Total 433 ug/dL (250-450); Magnesium 1.7 mg/dL (1.6-2.6); PERCENT IRON SATURATION 38.1 % (15.0-55.0); Potassium 3.9 mmol/L (3.5-5.1); Protein, Total 7.2 g/dL (6.4-8.2); Sodium Level 136 mmol/L (136-145); Thyroid Stim Hormone (TSH) 1.53 uIU/mL (0.358-3.74); Triglycerides 166 mg/dL; Very Low Density Lipoprotein 33 mg/dL (5-40)
[2022-02-16 11:34] LABS: Vitamin B12 233 pg/mL (211-911)
== END | disposition home or self-care (01) ==
LOC: MFPLAB 09:28
PROVIDERS: PCP Family Medicine; Referring Provider Family Medicine; Visit Provider Family Medicine
DX: E11.65 Type 2 diabetes mellitus with hyperglycemia (principal); D50.9 Iron deficiency anemia, unspecified; R25.2 Cramp and spasm
CPT/HCPCS: 36415; 80053; 80061; 82043; 82550; 82570; 82607; 82728; 83036; 83540; 83550; 83735; 84443; 85025

== ENCOUNTER → 2022-03-22 | Outpatient (CLI) | payer MEDICARE, OTHER, SELFPAY ==
[2022-03-22 10:02] LABS: Absolute Neutrophil Count 3.2 X10^3/uL (2.0-7.7); Basophil# 0.02 X10^3/uL; Basophil% 0.4 % (0-1); Eosinophil# 0.12 X10^3/uL; Eosinophils% 2.6 % (0-5); Hematocrit 38.2 % (40-54); Hemoglobin 12.3 g/dL (13.0-16.5); Lymphocyte % 17.2 % (19-41); Mean Corp Hgb Conc 32.2 g/dL (32-36); Mean Corpuscular Hgb 26.2 pg (27.0-32.0); Mean Corpuscular Volume 81.4 fL (80-94); Mean Platelet Vol. 9.8 fl (6.2-12.0); Monocyte# 0.46 X10^3/uL; Monocyte% 9.9 % (0-10); NRBC Flagged by Analyzer 0 % (0-5); Neutrophil # 3.23 X10^3/uL (2.7-7.7); Neutrophil % 69.5 % (47-70); Platelet Count 245 K/mm3 (150-450); RBC Distribution Width CV 13.8 % (11.6-14.6); RBC Distribution Width SD 39.9 fl (35.1-43.9); Red Blood Count 4.69 M/mm3 (4.6-6.2); White Blood Count 4.7 K/mm3 (4.4-11.0)
[2022-03-22 10:29] LABS: Microalbumin,Random Urine 14.1 mg/L (NO RANGE EST.)
[2022-03-22 10:44] LABS: Vitamin B12 255 pg/mL (211-911)
[2022-03-22 11:05] LABS: ALB/GLOB Ratio 1.1 RATIO (0.9-2.4); AST(SGOT) 26 U/L (15-37); Alanine Aminotransfer ALT/SGPT 41 U/L (16-61); Albumin, Serum 3.6 g/dL (3.2-5.0); Alkaline Phosphatase 77 U/L (45-117); Anion Gap 9 (5-15); BUN 18 mg/dL (7-18); BUN/Creat Ratio 17.6 RATIO (10-20); CPK Total, Creatine Kinase 411 U/L (39-308); Calcium,Total 8.6 mg/dL (8.5-10.1); Chloride 104 mmol/L (98-107); Cholesterol 133 mg/dL (200); Creatinine, Serum 1.02 mg/dL (0.70-1.30); EST Glomerular Filtration Rate 77 mL/min (>60); Est Glom Filt Rate - Afr Amer 93 mL/min (>60); Ferritin 8 ng/mL (26-388); Globulin 3.4 g/dL (2.2-4.2); Glucose 258 mg/dL (74-106); High Density Lipoprotein 38 mg/dL; Iron 112 ug/dL (65-175); Iron Binding Capacity,Total 390 ug/dL (250-450); Magnesium 1.7 mg/dL (1.6-2.6); Sodium Level 137 mmol/L (136-145); Thyroid Stim Hormone (TSH) 1.16 uIU/mL (0.358-3.74); Triglycerides 214 mg/dL; Very Low Density Lipoprotein 43 mg/dL (5-40)
[2022-03-22 11:10] LABS: Hemoglobin A1c 7.4 % (3.8-5.6)
== END | disposition home or self-care (01) ==
PROVIDERS: PCP Family Medicine; Visit Provider Family Medicine
DX: E11.65 Type 2 diabetes mellitus with hyperglycemia (principal); D50.9 Iron deficiency anemia, unspecified; R25.2 Cramp and spasm
CPT/HCPCS: 36415; 80053; 80061; 82043; 82550; 82570; 82607; 82728; 83036; 83540; 83550; 83735; 84443; 85025

== ENCOUNTER → 2022-06-09 | Outpatient (CLI) | payer MEDICARE, OTHER, SELFPAY ==
[2022-06-09 10:04] LABS: Absolute Lymphocyte Count 0.97 X10^3/uL (0.83-4.51); Absolute Neutrophil Count 3.7 X10^3/uL (2.0-7.7); Basophil# 0.02 X10^3/uL; Basophil% 0.4 % (0-1); Eosinophil# 0.13 X10^3/uL; Eosinophils% 2.4 % (0-5); Hematocrit 42.3 % (40-54); Lymphocyte # 0.97 X10^3/ul (0.83-4.51); Lymphocyte % 18.2 % (19-41); Mean Corp Hgb Conc 33.1 g/dL (32-36); Mean Corpuscular Hgb 27.1 pg (27.0-32.0); Mean Platelet Vol. 9.9 fl (6.2-12.0); Monocyte# 0.48 X10^3/uL; NRBC Flagged by Analyzer 0 % (0-5); Neutrophil # 3.71 X10^3/uL (2.7-7.7); Neutrophil % 69.6 % (47-70); Platelet Count 253 K/mm3 (150-450); RBC Distribution Width CV 14.6 % (11.6-14.6); RBC Distribution Width SD 43.5 fl (35.1-43.9); Red Blood Count 5.16 M/mm3 (4.6-6.2); White Blood Count 5.3 K/mm3 (4.4-11.0)
[2022-06-09 10:25] LABS: Vitamin B12 458 pg/mL (211-911)
[2022-06-09 10:28] LABS: Hemoglobin A1c 7.6 % (3.8-5.6)
[2022-06-09 10:44] LABS: Microalbumin,Random Urine 19.1 mg/L (NO RANGE EST.); Microalbumin:Creatinine Ratio 14.5 mg/g CRE (<30 mg/g CRE)
[2022-06-09 11:25] LABS: ALB/GLOB Ratio 1.1 RATIO (0.9-2.4); AST(SGOT) 35 U/L (15-37); Alanine Aminotransfer ALT/SGPT 53 U/L (16-61); Albumin, Serum 3.5 g/dL (3.2-5.0); Alkaline Phosphatase 75 U/L (45-117); Anion Gap 8 (5-15); BUN 19 mg/dL (7-18); Calcium,Total 9.1 mg/dL (8.5-10.1); Chloride 106 mmol/L (98-107); Cholesterol 113 mg/dL (200); Creatinine, Serum 0.86 mg/dL (0.70-1.30); EST Glomerular Filtration Rate 93 mL/min (>60); Est Glom Filt Rate - Afr Amer 113 mL/min (>60); Ferritin 19 ng/mL (26-388); Globulin 3.3 g/dL (2.2-4.2); Glucose 182 mg/dL (74-106); High Density Lipoprotein 36 mg/dL; Iron 100 ug/dL (65-175); Iron Binding Capacity,Total 377 ug/dL (250-450); Potassium 4.1 mmol/L (3.5-5.1); Protein, Total 6.8 g/dL (6.4-8.2); Sodium Level 137 mmol/L (136-145); Triglycerides 159 mg/dL; Very Low Density Lipoprotein 32 mg/dL (5-40)
== END | disposition home or self-care (01) ==
LOC: MFPLAB 08:25
PROVIDERS: PCP Family Medicine; Referring Provider Family Medicine; Visit Provider Family Medicine
DX: E11.65 Type 2 diabetes mellitus with hyperglycemia (principal); E11.69 Type 2 diabetes mellitus with other specified complication; D50.9 Iron deficiency anemia, unspecified; E53.8 Deficiency of other specified B group vitamins
CPT/HCPCS: 36415; 80053; 80061; 82043; 82570; 82607; 82728; 82746; 83036; 83540; 83550; 85025

== ENCOUNTER 2022-07-20 08:00 | Outpatient (RCR) | payer MEDICARE, OTHER, SELFPAY | END 2022-07-21 23:59 | LOC: DC 08:00 | PROVIDERS: PCP Family Medicine; Visit Provider Family Medicine | DX: E11.65 Type 2 diabetes mellitus with hyperglycemia (principal) | CPT/HCPCS: 97802; G0108 ==

== ENCOUNTER 2022-08-30 08:00 | Outpatient (RCR) | payer MEDICARE, OTHER, SELFPAY | END 2022-09-20 23:59 | LOC: DC 08:00 | PROVIDERS: PCP Family Medicine; Visit Provider Family Medicine | DX: E11.65 Type 2 diabetes mellitus with hyperglycemia (principal) | CPT/HCPCS: 97803; G0108 ==

== ENCOUNTER → 2022-08-30 | Outpatient (CLI) | payer MEDICARE, OTHER, SELFPAY ==
[2022-08-30 12:08] LABS: Absolute Lymphocyte Count 1.24 X10^3/uL (0.83-4.51); Absolute Neutrophil Count 4.3 X10^3/uL (2.0-7.7); Basophil# 0.02 X10^3/uL; Basophil% 0.3 % (0-1); Eosinophil# 0.15 X10^3/uL; Eosinophils% 2.4 % (0-5); Hematocrit 44.8 % (40-54); Hemoglobin 14.5 g/dL (13.0-16.5); Lymphocyte # 1.24 X10^3/ul (0.83-4.51); Lymphocyte % 19.7 % (19-41); Mean Corp Hgb Conc 32.4 g/dL (32-36); Mean Corpuscular Volume 86.7 fL (80-94); Mean Platelet Vol. 10.1 fl (6.2-12.0); Monocyte% 9.5 % (0-10); NRBC Flagged by Analyzer 0 % (0-5); Neutrophil # 4.27 X10^3/uL (2.7-7.7); Neutrophil % 67.6 % (47-70); Platelet Count 261 K/mm3 (150-450); RBC Distribution Width CV 13.1 % (11.6-14.6); RBC Distribution Width SD 40.8 fl (35.1-43.9); Red Blood Count 5.17 M/mm3 (4.6-6.2); White Blood Count 6.3 K/mm3 (4.4-11.0)
[2022-08-30 12:26] LABS: Hemoglobin A1c 8.5 % (3.8-5.6)
[2022-08-30 12:28] LABS: Vitamin B12 542 pg/mL (211-911)
[2022-08-30 12:29] LABS: ALB/GLOB Ratio 1.2 RATIO (0.9-2.4); AST(SGOT) 25 U/L (15-37); Alanine Aminotransfer ALT/SGPT 49 U/L (16-61); Alkaline Phosphatase 80 U/L (45-117); Anion Gap 10 (5-15); BUN 20 mg/dL (7-18); BUN/Creat Ratio 21.8 RATIO (10-20); Calcium,Total 8.8 mg/dL (8.5-10.1); Chloride 102 mmol/L (98-107); Cholesterol 111 mg/dL (200); Creatinine, Serum 0.92 mg/dL (0.70-1.30); EST Glomerular Filtration Rate 87 mL/min (>60); Est Glom Filt Rate - Afr Amer 105 mL/min (>60); Ferritin 26 ng/mL (26-388); Globulin 3.4 g/dL (2.2-4.2); Glucose 124 mg/dL (74-106); High Density Lipoprotein 41 mg/dL; Iron 180 ug/dL (65-175); Iron Binding Capacity,Total 476 ug/dL (250-450); Protein, Total 7.4 g/dL (6.4-8.2); Sodium Level 136 mmol/L (136-145); Triglycerides 197 mg/dL; Very Low Density Lipoprotein 39 mg/dL (5-40)
[2022-08-30 13:35] LABS: Microalbumin,Random Urine 8.3 mg/L (NO RANGE EST.); Microalbumin:Creatinine Ratio 10.8 mg/g CRE (<30 mg/g CRE)
== END | disposition home or self-care (01) ==
PROVIDERS: PCP Family Medicine; Referring Provider Family Medicine; Visit Provider Family Medicine
DX: E11.65 Type 2 diabetes mellitus with hyperglycemia (principal); R79.0 Abnormal level of blood mineral; E53.8 Deficiency of other specified B group vitamins
CPT/HCPCS: 36415; 80053; 80061; 82043; 82570; 82607; 82728; 83036; 83540; 83550; 85025; G0108

== ENCOUNTER 2022-10-03 08:39 | Outpatient (RCR) | payer MEDICARE, OTHER, SELFPAY | END 2022-10-21 23:59 | LOC: DC 08:39 | PROVIDERS: PCP Family Medicine; Visit Provider Family Medicine | DX: E11.65 Type 2 diabetes mellitus with hyperglycemia (principal) | CPT/HCPCS: 97803 ==

== ENCOUNTER → 2022-12-26 | Outpatient (CLI) | payer MEDICARE, OTHER, SELFPAY ==
[2022-12-26 10:01] LABS: Absolute Lymphocyte Count 0.97 X10^3/uL (0.83-4.51); Basophil# 0.03 X10^3/uL; Basophil% 0.6 % (0-1); Eosinophil# 0.15 X10^3/uL; Eosinophils% 3.2 % (0-5); Hematocrit 42.8 % (40-54); Hemoglobin 13.6 g/dL (13.0-16.5); Lymphocyte # 0.97 X10^3/ul (0.83-4.51); Lymphocyte % 20.8 % (19-41); Mean Corp Hgb Conc 31.8 g/dL (32-36); Mean Corpuscular Hgb 27.8 pg (27.0-32.0); Mean Corpuscular Volume 87.5 fL (80-94); Mean Platelet Vol. 10.1 fl (6.2-12.0); Monocyte# 0.49 X10^3/uL; Monocyte% 10.5 % (0-10); NRBC Flagged by Analyzer 0 % (0-5); Neutrophil # 3.02 X10^3/uL (2.7-7.7); Neutrophil % 64.7 % (47-70); Platelet Count 255 K/mm3 (150-450); RBC Distribution Width CV 12.5 % (11.6-14.6); RBC Distribution Width SD 39.7 fl (35.1-43.9); Red Blood Count 4.89 M/mm3 (4.6-6.2); White Blood Count 4.7 K/mm3 (4.4-11.0)
[2022-12-26 10:23] LABS: Microalbumin,Random Urine 8.4 mg/L (NO RANGE EST.); Microalbumin:Creatinine Ratio 10.6 mg/g CRE (<30 mg/g CRE)
[2022-12-26 10:31] LABS: Vitamin B12 611 pg/mL (211-911)
[2022-12-26 10:42] LABS: ALB/GLOB Ratio 1.1 RATIO (0.9-2.4); AST(SGOT) 21 U/L (15-37); Alanine Aminotransfer ALT/SGPT 38 U/L (16-61); Albumin, Serum 3.5 g/dL (3.2-5.0); Alkaline Phosphatase 77 U/L (45-117); Anion Gap 10 (5-15); BUN 20 mg/dL (7-18); BUN/Creat Ratio 21.9 RATIO (10-20); Calcium,Total 8.5 mg/dL (8.5-10.1); Chloride 105 mmol/L (98-107); Cholesterol 113 mg/dL (200); Creatinine, Serum 0.92 mg/dL (0.70-1.30); EST Glomerular Filtration Rate 87 mL/min (>60); Est Glom Filt Rate - Afr Amer 106 mL/min (>60); Ferritin 8 ng/mL (26-388); Globulin 3.2 g/dL (2.2-4.2); Glucose 161 mg/dL (74-106); High Density Lipoprotein 40 mg/dL; Iron 96 ug/dL (65-175); Iron Binding Capacity,Total 420 ug/dL (250-450); Potassium 4.1 mmol/L (3.5-5.1); Protein, Total 6.7 g/dL (6.4-8.2); Sodium Level 140 mmol/L (136-145); Triglycerides 129 mg/dL; Very Low Density Lipoprotein 26 mg/dL (5-40)
[2022-12-26 11:04] LABS: Hemoglobin A1c 7.9 % (3.8-5.6)
== END | disposition home or self-care (01) ==
LOC: MFPLAB 08:03
PROVIDERS: PCP Family Medicine; Referring Provider Family Medicine; Visit Provider Family Medicine
DX: D50.9 Iron deficiency anemia, unspecified (principal); E11.65 Type 2 diabetes mellitus with hyperglycemia
CPT/HCPCS: 36415; 80053; 80061; 82043; 82570; 82607; 82728; 83036; 83540; 83550; 85025

== ENCOUNTER 2023-02-27 13:30 | Outpatient (RCR) | payer MEDICARE, OTHER, SELFPAY | END 2023-03-21 23:59 | LOC: DC 13:30 | PROVIDERS: PCP Family Medicine; Referring Provider Family Medicine; Visit Provider Family Medicine | DX: E11.65 Type 2 diabetes mellitus with hyperglycemia (principal) | CPT/HCPCS: 97803; G0109 ==

== ENCOUNTER 2023-04-17 07:26 | Outpatient (RCR) | payer MEDICARE, OTHER, SELFPAY | END 2023-04-20 23:59 | LOC: DC 07:26 | PROVIDERS: PCP Family Medicine; Referring Provider Family Medicine; Visit Provider Family Medicine | DX: E11.65 Type 2 diabetes mellitus with hyperglycemia (principal) | CPT/HCPCS: 97803; G0109 ==

== ENCOUNTER → 2023-07-26 | Outpatient (CLI) | payer MEDICARE, OTHER, SELFPAY ==
[2023-07-26 12:35] LABS: Absolute Neutrophil Count 3.3 X10^3/uL (2.0-7.7); Basophil# 0.02 X10^3/uL; Basophil% 0.4 % (0-1); Eosinophil# 0.15 X10^3/uL; Eosinophils% 2.9 % (0-5); Hematocrit 43.2 % (40-54); Hemoglobin 13.8 g/dL (13.0-16.5); Lymphocyte % 19.6 % (19-41); Mean Corp Hgb Conc 31.9 g/dL (32-36); Mean Corpuscular Hgb 27.6 pg (27.0-32.0); Mean Corpuscular Volume 86.4 fL (80-94); Mean Platelet Vol. 10.1 fl (6.2-12.0); Monocyte# 0.57 X10^3/uL; Monocyte% 11.2 % (0-10); NRBC Flagged by Analyzer 0 % (0-5); Neutrophil # 3.34 X10^3/uL (2.7-7.7); Neutrophil % 65.7 % (47-70); Platelet Count 259 K/mm3 (150-450); RBC Distribution Width CV 13.1 % (11.6-14.6); RBC Distribution Width SD 40.6 fl (35.1-43.9); White Blood Count 5.1 K/mm3 (4.4-11.0)
[2023-07-26 12:53] LABS: Vitamin D,25 Hydroxy 33.2 ng/mL
[2023-07-26 13:03] LABS: ALB/GLOB Ratio 1.2 RATIO (0.9-2.4); AST(SGOT) 23 U/L (15-37); Alanine Aminotransfer ALT/SGPT 38 U/L (16-61); Albumin, Serum 3.8 g/dL (3.2-5.0); Alkaline Phosphatase 85 U/L (45-117); Anion Gap 5 (5-15); BUN 18 mg/dL (7-18); BUN/Creat Ratio 19.5 RATIO (10-20); Calcium,Total 9.2 mg/dL (8.5-10.1); Chloride 102 mmol/L (98-107); Cholesterol 136 mg/dL (200); Creatinine, Serum 0.92 mg/dL (0.70-1.30); EST Glomerular Filtration Rate 86 mL/min (>60); Est Glom Filt Rate - Afr Amer 104 mL/min (>60); Globulin 3.3 g/dL (2.2-4.2); Glucose 206 mg/dL (74-106); High Density Lipoprotein 48 mg/dL; Iron 75 ug/dL (65-175); Iron Binding Capacity,Total 410 ug/dL (250-450); PERCENT IRON SATURATION 18.3 % (15.0-55.0); Potassium 4.2 mmol/L (3.5-5.1); Protein, Total 7.1 g/dL (6.4-8.2); Sodium Level 136 mmol/L (136-145); Triglycerides 136 mg/dL; Very Low Density Lipoprotein 27 mg/dL (5-40)
[2023-07-26 14:01] LABS: Hemoglobin A1c 9.4 % (3.8-5.6)
[2023-07-26 14:51] LABS: Microalbumin,Random Urine 14.8 mg/L (NO RANGE EST.); Microalbumin:Creatinine Ratio 12.2 mg/g CRE (<30 mg/g CRE)
== END | disposition home or self-care (01) ==
LOC: BIMLAB 09:49
PROVIDERS: PCP Internal Medicine; Visit Provider Internal Medicine
DX: I10 Essential (primary) hypertension (principal); E11.9 Type 2 diabetes mellitus without complications; E61.1 Iron deficiency; E55.9 Vitamin D deficiency, unspecified; Z13.220 Encounter for screening for lipoid disorders
CPT/HCPCS: 36415; 80053; 80061; 82043; 82306; 82570; 83036; 83540; 83550; 85025

== ENCOUNTER → 2023-11-20 | Outpatient (CLI) | payer MEDICARE, OTHER, SELFPAY | END | disposition home or self-care (01) | LOC: LABSPEC 10:16 | PROVIDERS: PCP Internal Medicine; Referring Provider Dermatology; Visit Provider Dermatology | DX: B35.1 Tinea unguium (principal) | CPT/HCPCS: 87101 ==

== ENCOUNTER → 2024-01-22 | Outpatient (CLI) | payer MEDICARE, OTHER, SELFPAY ==
[2024-01-22 11:21] LABS: Anion Gap 4 (5-15); BUN 15 mg/dL (7-18); BUN/Creat Ratio 15.8 RATIO (10-20); Calcium,Total 8.8 mg/dL (8.5-10.1); Chloride 103 mmol/L (98-107); Creatinine, Serum 0.95 mg/dL (0.70-1.30); EST Glomerular Filtration Rate 84 mL/min (>60); Est Glom Filt Rate - Afr Amer 101 mL/min (>60); Glucose 279 mg/dL (74-106); Potassium 4.6 mmol/L (3.5-5.1); Sodium Level 135 mmol/L (136-145)
[2024-01-22 12:17] LABS: Hemoglobin A1c 10.9 % (3.8-5.6)
== END | disposition home or self-care (01) ==
LOC: BIMLAB 08:55
PROVIDERS: PCP Internal Medicine; Referring Provider Internal Medicine; Visit Provider Internal Medicine
DX: E11.9 Type 2 diabetes mellitus without complications (principal); E61.1 Iron deficiency; I10 Essential (primary) hypertension
CPT/HCPCS: 36415; 80048; 83036; 83525

== ENCOUNTER → 2024-04-21 | Outpatient (CLI) | payer MEDICARE, OTHER, SELFPAY ==
[2024-04-21 09:23] LABS: Bacteria 0 SEEN /hpf (None Seen); Mucous, Urine 0 SEEN /hpf (<or=2+); Red Blood Cells-Urine 0 SEEN /hpf (0-5); Squamous Epithelial Cells - UA 0 SEEN /hpf (0-5); White Blood Cells 0 SEEN /hpf (0-5)
[2024-04-21 12:16] LABS: Color, Urine Yellow (Yellow); Glucose, Dipstick 1000 mg/dl (Normal); Ketone-Dipstick Negative (Negative); Leukocyte Esterase-Dipstick Negative /ul (Negative); Nitrite-Dipstick Negative (Negative); Occult Blood-Urine Negative /ul (Negative); Protein-Dipstick Negative (Negative); Urine Bilirubin Dipstick Negative (Negative); Urine Clarity Clear (Clear); Urine Urobilinogen Normal (Normal)
[2024-04-21 12:17] LABS: Absolute Neutrophil Count 3.3 X10^3/uL (2.0-7.7); Basophil# 0.03 X10^3/uL; Basophil% 0.6 % (0-1); Eosinophil# 0.16 X10^3/uL; Eosinophils% 3.2 % (0-5); Hematocrit 42.6 % (40-54); Hemoglobin 13.4 g/dL (13.0-16.5); Lymphocyte % 19.8 % (19-41); Mean Corp Hgb Conc 31.5 g/dL (32-36); Mean Corpuscular Volume 88.9 fL (80-94); Mean Platelet Vol. 10.4 fl (6.2-12.0); Monocyte# 0.53 X10^3/uL; Monocyte% 10.5 % (0-10); NRBC Flagged by Analyzer 0 % (0-5); Neutrophil # 3.33 X10^3/uL (2.7-7.7); Neutrophil % 65.7 % (47-70); Platelet Count 234 K/mm3 (150-450); RBC Distribution Width CV 12.6 % (11.6-14.6); RBC Distribution Width SD 41.1 fl (35.1-43.9); Red Blood Count 4.79 M/mm3 (4.6-6.2); White Blood Count 5.1 K/mm3 (4.4-11.0)
[2024-04-21 12:32] LABS: Hemoglobin A1c 8.4 % (3.8-5.6)
[2024-04-21 12:42] LABS: ALB/GLOB Ratio 1.1 RATIO (0.9-2.4); AST(SGOT) 21 U/L (15-37); Alanine Aminotransfer ALT/SGPT 42 U/L (16-61); Albumin, Serum 3.5 g/dL (3.2-5.0); Alkaline Phosphatase 85 U/L (45-117); Anion Gap 6 (5-15); BUN 17 mg/dL (7-18); BUN/Creat Ratio 19.2 RATIO (10-20); Calcium,Total 8.8 mg/dL (8.5-10.1); Chloride 105 mmol/L (98-107); Creatinine, Serum 0.89 mg/dL (0.70-1.30); EST Glomerular Filtration Rate 90 mL/min (>60); Est Glom Filt Rate - Afr Amer 109 mL/min (>60); Globulin 3.1 g/dL (2.2-4.2); Glucose 225 mg/dL (74-106); Potassium 4.4 mmol/L (3.5-5.1); Protein, Total 6.6 g/dL (6.4-8.2); Sodium Level 139 mmol/L (136-145)
== END | disposition home or self-care (01) ==
LOC: BIMLAB 09:22
PROVIDERS: PCP Internal Medicine; Referring Provider Internal Medicine; Visit Provider Internal Medicine
DX: I10 Essential (primary) hypertension (principal); E11.9 Type 2 diabetes mellitus without complications
CPT/HCPCS: 36415; 80053; 81001; 83036; 85025

== ENCOUNTER → 2024-08-05 | Outpatient (CLI) | payer MEDICARE, OTHER, SELFPAY ==
[2024-08-05 12:52] LABS: ALB/GLOB Ratio 1.1 RATIO (0.9-2.4); AST(SGOT) 26 U/L (15-37); Alanine Aminotransfer ALT/SGPT 45 U/L (16-61); Albumin, Serum 3.7 g/dL (3.2-5.0); Alkaline Phosphatase 75 U/L (45-117); Anion Gap 4 (5-15); BUN 18 mg/dL (7-18); Calcium,Total 9.3 mg/dL (8.5-10.1); Chloride 103 mmol/L (98-107); Cholesterol 140 mg/dL (200); EST Glomerular Filtration Rate 78 mL/min (>60); Est Glom Filt Rate - Afr Amer 95 mL/min (>60); Globulin 3.3 g/dL (2.2-4.2); Glucose 182 mg/dL (74-106); High Density Lipoprotein 46 mg/dL; Potassium 4.3 mmol/L (3.5-5.1); Sodium Level 136 mmol/L (136-145); Triglycerides 172 mg/dL; Very Low Density Lipoprotein 34 mg/dL (5-40)
[2024-08-05 12:53] LABS: Absolute Lymphocyte Count 0.96 X10^3/uL (0.83-4.51); Basophil# 0.03 X10^3/uL; Basophil% 0.6 % (0-1); Eosinophil# 0.16 X10^3/uL; Eosinophils% 3.4 % (0-5); Hematocrit 43.1 % (40-54); Hemoglobin 13.8 g/dL (13.0-16.5); Lymphocyte # 0.96 X10^3/ul (0.83-4.51); Lymphocyte % 20.7 % (19-41); Mean Corpuscular Hgb 28.4 pg (27.0-32.0); Mean Corpuscular Volume 88.7 fL (80-94); Mean Platelet Vol. 9.9 fl (6.2-12.0); Monocyte# 0.52 X10^3/uL; Monocyte% 11.2 % (0-10); NRBC Flagged by Analyzer 0 % (0-5); Neutrophil # 2.95 X10^3/uL (2.7-7.7); Neutrophil % 63.7 % (47-70); Platelet Count 251 K/mm3 (150-450); Red Blood Count 4.86 M/mm3 (4.6-6.2); White Blood Count 4.6 K/mm3 (4.4-11.0)
[2024-08-05 15:25] LABS: Hemoglobin A1c 9.3 % (3.8-5.6)
== END | disposition home or self-care (01) ==
LOC: BIMLAB 08:37
PROVIDERS: PCP Internal Medicine; Visit Provider Internal Medicine
DX: E11.65 Type 2 diabetes mellitus with hyperglycemia (principal); I10 Essential (primary) hypertension; E61.1 Iron deficiency; Z13.220 Encounter for screening for lipoid disorders
CPT/HCPCS: 36415; 80053; 80061; 83036; 83735; 85025

== ENCOUNTER → 2024-11-04 | Outpatient (CLI) | payer MEDICARE, OTHER, SELFPAY ==
[2024-11-04 14:40] LABS: Hemoglobin A1c 9.5 % (3.8-5.6)
== END | disposition home or self-care (01) ==
LOC: BIMLAB 08:17
PROVIDERS: PCP Internal Medicine; Referring Provider Internal Medicine; Visit Provider Internal Medicine
DX: R73.9 Hyperglycemia, unspecified (principal)

== ENCOUNTER → 2025-02-19 | Outpatient (CLI) | payer MEDICARE, OTHER, SELFPAY ==
[2025-02-19 12:20] LABS: Absolute Lymphocyte Count 0.95 X10^3/uL (0.83-4.51); Absolute Neutrophil Count 3.5 X10^3/uL (2.0-7.7); Basophil# 0.04 X10^3/uL; Basophil% 0.8 % (0-1); Eosinophil# 0.14 X10^3/uL; Eosinophils% 2.7 % (0-5); Hematocrit 41.5 % (40-54); Hemoglobin 13.9 g/dL (13.0-16.5); Lymphocyte # 0.95 X10^3/ul (0.83-4.51); Lymphocyte % 18.1 % (19-41); Mean Corp Hgb Conc 33.5 g/dL (32-36); Mean Corpuscular Hgb 29.3 pg (27.0-32.0); Mean Corpuscular Volume 87.6 fL (80-94); Mean Platelet Vol. 10.2 fl (6.2-12.0); Monocyte# 0.65 X10^3/uL; Monocyte% 12.4 % (0-10); NRBC Flagged by Analyzer 0 % (0-5); Neutrophil # 3.46 X10^3/uL (2.7-7.7); Neutrophil % 65.6 % (47-70); Platelet Count 226 K/mm3 (150-450); RBC Distribution Width CV 12.7 % (11.6-14.6); RBC Distribution Width SD 40.7 fl (35.1-43.9); Red Blood Count 4.74 M/mm3 (4.6-6.2); White Blood Count 5.3 K/mm3 (4.4-11.0)
[2025-02-19 13:17] LABS: Hemoglobin A1c 8.9 % (<=5.6)
[2025-02-19 13:39] LABS: ALB/GLOB Ratio 1.9 RATIO (0.9-2.4); AST(SGOT) 24 U/L (<=37); Alanine Aminotransfer ALT/SGPT 28 U/L (<=46); Albumin, Serum 4.1 g/dL (3.4-4.8); Alkaline Phosphatase 72 U/L (40-129); Anion Gap 9 (5-15); BUN 16 mg/dL (4-19); BUN/Creat Ratio 19.2 RATIO (10-20); Calcium,Total 8.8 mg/dL (7.6-11.0); Carbon Dioxide 25.7 mmol/L (21.0-32.0); Chloride 104 mmol/L (98-108); Cholesterol 114 mg/dL (<=200); Creatinine, Serum 0.83 mg/dL (0.70-1.20); EST Glomerular Filtration Rate 94 (>60); Globulin 2.2 g/dL (2.2-4.2); Glucose 160 mg/dL (70-99); High Density Lipoprotein 41 mg/dL; Low Density Lipoprotein Calc. 44 mg/dL; PSA,Total - Annual Screen 2.36 ng/mL (0.02-4.00); Potassium 4.2 mmol/L (3.3-5.1); Protein, Total 6.2 g/dL (5.9-8.4); Sodium Level 139 mmol/L (133-145); Total Bilirubin 0.42 mg/dL (0.00-1.30); Triglycerides 147 mg/dL; Very Low Density Lipoprotein 29 mg/dL (5-40); cholesterol:hdl ratio screen 2.78
== END | disposition home or self-care (01) ==
LOC: BIMLAB 09:11
PROVIDERS: PCP Internal Medicine; Referring Provider Internal Medicine; Visit Provider Internal Medicine
DX: E11.65 Type 2 diabetes mellitus with hyperglycemia (principal); I10 Essential (primary) hypertension; Z13.220 Encounter for screening for lipoid disorders; Z12.5 Encounter for screening for malignant neoplasm of prostate
CPT/HCPCS: 36415; 80053; 80061; 83036; 84153; 85025; G0103

== ENCOUNTER → 2025-05-14 | Outpatient (CLI) | payer MEDICARE, OTHER, SELFPAY ==
[2025-05-14 12:55] LABS: Anion Gap 11 (5-15); BUN 23 mg/dL (4-19); BUN/Creat Ratio 22.5 RATIO (10-20); Calcium,Total 9.3 mg/dL (7.6-11.0); Carbon Dioxide 25.5 mmol/L (21.0-32.0); Chloride 100 mmol/L (98-108); Glucose 191 mg/dL (70-99); Potassium 4.5 mmol/L (3.3-5.1)
== END | disposition home or self-care (01) ==
LOC: BIMLAB 08:07
PROVIDERS: PCP Internal Medicine; Referring Provider Internal Medicine; Visit Provider Internal Medicine
DX: I10 Essential (primary) hypertension (principal); R73.9 Hyperglycemia, unspecified
CPT/HCPCS: 36415; 80048; 83036

== ENCOUNTER → 2025-08-20 | Outpatient (CLI) | payer MEDICARE, OTHER, SELFPAY ==
[2025-08-20 10:27] LABS: Hematocrit 43.9 % (40-54); Hemoglobin 14.5 g/dL (13.0-16.5); Immature Granulocytes Count 0.020 X10^3/uL (0.0-0.0); Mean Corp Hgb Conc 33.0 g/dL (32-36); Mean Corpuscular Volume 87.8 fL (80-94); Mean Platelet Vol. 9.9 fl (6.2-12.0); NRBC Flagged by Analyzer 0 % (0-5); Platelet Count 250 K/mm3 (150-450); RBC Distribution Width CV 12.4 % (11.6-14.6); RBC Distribution Width SD 40.1 fl (35.1-43.9); Red Blood Count 5.00 M/mm3 (4.6-6.2); White Blood Count 5.7 K/mm3 (4.4-11.0)
[2025-08-20 11:04] LABS: AST(SGOT) 27 U/L (<=37); Alanine Aminotransfer ALT/SGPT 31 U/L (<=46); Albumin, Serum 4.3 g/dL (3.4-4.8); Alkaline Phosphatase 79 U/L (40-129); Anion Gap 10 (5-15); BUN 17 mg/dL (4-19); BUN/Creat Ratio 18.4 RATIO (10-20); Calcium,Total 9.3 mg/dL (7.6-11.0); Carbon Dioxide 25.2 mmol/L (21.0-32.0); Chloride 102 mmol/L (98-108); Cholesterol 122 mg/dL (<=200); Globulin 2.7 g/dL (2.2-4.2); Glucose 177 mg/dL (70-99); Low Density Lipoprotein Calc. 47 mg/dL; Potassium 4.4 mmol/L (3.3-5.1); Triglycerides 144 mg/dL; Very Low Density Lipoprotein 29 mg/dL (5-40); Vitamin B12 871 pg/mL (180-914); Vitamin D,25 Hydroxy 34.4 ng/mL (30-100); cholesterol:hdl ratio screen 2.42
[2025-08-20 11:31] LABS: Iron 127 ug/dL (65-175); Iron Binding Capacity,Total 363 ug/dL (250-450); Iron Binding Capacity,Unsat 236 ug/dL (228-428)
== END | disposition home or self-care (01) ==
LOC: MTLAB 09:18
PROVIDERS: PCP Internal Medicine; Referring Provider Internal Medicine; Visit Provider Internal Medicine
DX: E11.9 Type 2 diabetes mellitus without complications (principal); I10 Essential (primary) hypertension; N39.0 Urinary tract infection, site not specified; Z13.220 Encounter for screening for lipoid disorders; E53.8 Deficiency of other specified B group vitamins; E16.1 Other hypoglycemia; E55.9 Vitamin D deficiency, unspecified
CPT/HCPCS: 36415; 80053; 80061; 82306; 82607; 83036; 83540; 83550; 84443; 85025